=== PATIENT | female | born 1990 | race Two or more races ===

== ENCOUNTER 2021-03-16 05:44 | Emergency (ER) | payer OTHER ==
[~2021-03-16] VITALS: Ht 157.5 cm; Wt 84.4 kg
[2021-03-16] MEDS ORDERED: KETO10TA2 PO (08:10)
== END 2021-03-16 08:17 ==
LOC: ER 05:44
DX: S93.402A Sprain of unspecified ligament of left ankle, initial encounter (principal); Y93.01 Activity, walking, marching and hiking; Y92.488 Other paved roadways as the place of occurrence of the external cause